=== PATIENT | male | born 1935 | race Two or more races ===

== ENCOUNTER → 2016-08-15 | Outpatient (CLI) | payer MEDICARE, OTHER ==
[~2016-08-15] MED LIST: CLOP75TA27 PO; ESCI10TA PO; INSU100V31 SQ; LISI10TA2 PO; METF500T4 PO; METO100T11 PO; SIMV20TA PO; UMEC62.5 IH
[2016-08-15 10:47] VITALS: BP 145/69
--- NOTE | 2016-08-15 13:04 | RAD ---
EXAM: Bilateral lower extremity arterial Doppler. HISTORY: Bilateral lower extremity nonhealing ulcers. COMPARISON: None. FINDINGS: Grayscale and Doppler analysis of the lower extremity arterial systems was performed bilaterally. There are elevated velocities within the right distal superficial femoral and popliteal arteries consistent with at least mild focal stenoses femoral waveforms appear clear, but there are likely triphasic through the trifurcation. There are biphasic at the ankle. On the left, there appear to be triphasic waveforms through the proximal superficial femoral artery. There are biphasic throughout the remainder of the lower extremity. No focally elevated velocities are seen. There are diffuse moderate atherosclerotic calcifications. IMPRESSION: 1. At least mild focal stenosis within the right distal superficial femoral artery and popliteal artery. 2. 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 3. Mild flow-limiting stenosis in the midportion of the left superficial femoral artery.
== END | disposition home or self-care (01) ==
LOC: US 13:40
PROVIDERS: ATTEND Preventive Medicine Undersea and Hyperbaric Medicine
DX: L97.929 Non-pressure chronic ulcer of unspecified part of left lower leg with unspecified severity (principal); L97.919 Non-pressure chronic ulcer of unspecified part of right lower leg with unspecified severity; I77.1 Stricture of artery
CPT/HCPCS: 93925

== ENCOUNTER → 2016-08-23 | Outpatient (CLI) | payer MEDICARE, OTHER ==
[2016-08-15 10:47] VITALS: BP 145/69
== END | disposition home or self-care (01) ==
LOC: PMGWOUND 08:54
PROVIDERS: ATTEND Preventive Medicine Undersea and Hyperbaric Medicine
DX: I87.313 Chronic venous hypertension (idiopathic) with ulcer of bilateral lower extremity (principal); I70.232 Atherosclerosis of native arteries of right leg with ulceration of calf; E11.622 Type 2 diabetes mellitus with other skin ulcer; L97.212 Non-pressure chronic ulcer of right calf with fat layer exposed; L97.222 Non-pressure chronic ulcer of left calf with fat layer exposed; Z86.73 Personal history of transient ischemic attack (TIA), and cerebral infarction without residual deficits; Z87.891 Personal history of nicotine dependence
CPT/HCPCS: 11042; 11045

== ENCOUNTER → 2016-08-30 | Outpatient (CLI) | payer MEDICARE, OTHER ==
[2016-08-15 10:47] VITALS: BP 145/69
== END | disposition home or self-care (01) ==
LOC: PMGWOUND 10:29
PROVIDERS: ATTEND Preventive Medicine Undersea and Hyperbaric Medicine
DX: I83.002 Varicose veins of unspecified lower extremity with ulcer of calf (principal); E11.622 Type 2 diabetes mellitus with other skin ulcer; L97.212 Non-pressure chronic ulcer of right calf with fat layer exposed; L97.222 Non-pressure chronic ulcer of left calf with fat layer exposed; I10 Essential (primary) hypertension; I25.10 Atherosclerotic heart disease of native coronary artery without angina pectoris; Z86.73 Personal history of transient ischemic attack (TIA), and cerebral infarction without residual deficits; Z87.891 Personal history of nicotine dependence
CPT/HCPCS: 11043; 97597; 97598

== ENCOUNTER → 2016-09-06 | Outpatient (CLI) | payer MEDICARE, OTHER ==
[2016-08-15 10:47] VITALS: BP 145/69
== END | disposition home or self-care (01) ==
LOC: PMGWOUND 09:46
PROVIDERS: ATTEND Preventive Medicine Undersea and Hyperbaric Medicine
DX: I83.008 Varicose veins of unspecified lower extremity with ulcer other part of lower leg (principal); E11.622 Type 2 diabetes mellitus with other skin ulcer; L97.212 Non-pressure chronic ulcer of right calf with fat layer exposed; L97.222 Non-pressure chronic ulcer of left calf with fat layer exposed; I10 Essential (primary) hypertension; I25.10 Atherosclerotic heart disease of native coronary artery without angina pectoris; Z87.891 Personal history of nicotine dependence; Z86.73 Personal history of transient ischemic attack (TIA), and cerebral infarction without residual deficits
CPT/HCPCS: 11043; 11046; 97597; 97598

== ENCOUNTER → 2016-09-13 | Outpatient (CLI) | payer MEDICARE, OTHER ==
[2016-08-15 10:47] VITALS: BP 145/69
--- NOTE | 2016-09-13 16:50 | RAD ---
APPROVED REPORT Patient Location : OUT-PATIENT Indications Venous Ulcers Findings The right great saphenous vein as previously ablated. The right lesser saphenous vein measures 5 mm a nd does not reflux. The left great saphenous vein measures 6 mm and does not reflux. The left lesser saphenous vein measures 3 mm and does not reflux. Critical Notification Critical Value: No <Conclusion> No evidence of reflux seen in the left greater saphenous vein or bilateral superficial small saphenou s veins. Previously ablated right great saphenous vein.
== END | disposition home or self-care (01) ==
LOC: US 12:40
PROVIDERS: ATTEND Internal Medicine Cardiovascular Disease
DX: I87.8 Other specified disorders of veins (principal)
CPT/HCPCS: 93970

== ENCOUNTER → 2016-09-18 | Outpatient (CLI) | payer MEDICARE, OTHER ==
[2016-08-15 10:47] VITALS: BP 145/69
== END | disposition home or self-care (01) ==
LOC: PMGWOUND 09:22
PROVIDERS: ATTEND Preventive Medicine Undersea and Hyperbaric Medicine
DX: I83.018 Varicose veins of right lower extremity with ulcer other part of lower leg (principal); E11.622 Type 2 diabetes mellitus with other skin ulcer; L97.212 Non-pressure chronic ulcer of right calf with fat layer exposed; L97.222 Non-pressure chronic ulcer of left calf with fat layer exposed; I10 Essential (primary) hypertension; Z86.73 Personal history of transient ischemic attack (TIA), and cerebral infarction without residual deficits; I25.10 Atherosclerotic heart disease of native coronary artery without angina pectoris; Z87.891 Personal history of nicotine dependence
CPT/HCPCS: 97597; 97598

== ENCOUNTER → 2016-09-25 | Outpatient (CLI) | payer MEDICARE, OTHER ==
[2016-08-15 10:47] VITALS: BP 145/69
--- NOTE | 2016-09-26 17:03 | RAD ---
APPROVED REPORT Patient Location : OUT-PATIENT Indications Venous Ulcers Perforators Thigh Perforators Calf Perforators Left: cm up from medial heel 9cm back from the anterior border of tibia 4 diameter 18mm. Findings Limited venous evaluation for perforators. 1 gi tech identified as noted above. The right great saphenous vein appears to been previously ablated with chronic scarring/thrombus. The right lesser saphenous vein is dilated but previously did not reveal any evidence of reflux. Critical Notification Critical Value: No <Conclusion> Perforators as noted above.
== END | disposition home or self-care (01) ==
LOC: US 11:17
PROVIDERS: ATTEND Internal Medicine Cardiovascular Disease
DX: I82.811 Embolism and thrombosis of superficial veins of right lower extremity (principal)
CPT/HCPCS: 93970

== ENCOUNTER → 2016-09-25 | Outpatient (CLI) | payer MEDICARE, OTHER ==
[2016-08-15 10:47] VITALS: BP 145/69
== END | disposition home or self-care (01) ==
LOC: PMGWOUND 09:28
PROVIDERS: ATTEND Preventive Medicine Undersea and Hyperbaric Medicine
DX: I83.002 Varicose veins of unspecified lower extremity with ulcer of calf (principal); I83.018 Varicose veins of right lower extremity with ulcer other part of lower leg; E11.622 Type 2 diabetes mellitus with other skin ulcer; L97.212 Non-pressure chronic ulcer of right calf with fat layer exposed; L97.222 Non-pressure chronic ulcer of left calf with fat layer exposed; I25.10 Atherosclerotic heart disease of native coronary artery without angina pectoris; I10 Essential (primary) hypertension; Z86.73 Personal history of transient ischemic attack (TIA), and cerebral infarction without residual deficits; Z87.891 Personal history of nicotine dependence
CPT/HCPCS: 11042; 11045; 97597

== ENCOUNTER → 2016-09-30 | Outpatient (CLI) | payer MEDICARE, OTHER ==
[2016-09-30] VITALS (11 sets, daily range): BP systolic 137–162; BP diastolic 73–83
[~2016-09-30] VITALS: Ht 170.2 cm; Wt 93.9 kg
[~2016-09-30] MED LIST changes: +ACETAMINOPHEN 325 MG TABLET. PO PRN; +CONTRAST GIVEN MC PRN; +FENTANYL PF 100 MCG/2 ML VIAL. IV ONE; +FENTANYL PF 250 MCG/5 ML VIAL. IV ONE; +FENTANYL PF 250 MCG/5 ML VIAL. ONE; +IODIXANOL 320 MG/ML 100 ML VIAL. IART ONE; +IODIXANOL 320 MG/ML 100 ML VIAL. ONE; +IV 1/2 NORMAL SALINE 1,000 ML IV SCH; +LIDOCAINE 2% 20 ML VIAL. IJ ONE; +LIDOCAINE 2% 20 ML VIAL. ONE; +MAGNESIUM HYDROXIDE 2,400 MG/30 ML ORAL.SUSP. PO PRN; +MIDAZOLAM HCL/PF 5 MG/5 ML VIAL. IV ONE; +MIDAZOLAM HCL/PF 5 MG/5 ML VIAL. ONE
[2016-09-30 07:08] LABS: HEMATOCRIT 34.8 % (39.0-53.0); HEMOGLOBIN 11.6 g/dL (13.0-17.5); RED BLOOD COUNT 3.81 x10^6/uL (4.30-5.70); RED CELL DISTRIBUTION WIDTH 14.9 % (11.5-14.5); WHITE BLOOD COUNT 5.6 x10^3/uL (4.0-11.0)
[2016-09-30 07:20] LABS: INR 1.2 (0.8-1.1); PROTHROMBIN TIME PATIENT 14.4 SEC (11.7-14.0)
[2016-09-30 07:22] LABS: CALCIUM 8.8 mg/dL (8.5-10.1); CREATININE 1.1 mg/dL (0.7-1.3); GFR 64.4; POTASSIUM 4.1 mmol/L (3.5-5.1)
--- NOTE | 2016-09-30 12:17 | PDOC ---
MODERATE SEDATION ASSESSMENT RISKS/ALTERNATIVES Risks/Alternatives Risks and alternatives of this type of sedation and procedure discussed with: RISK/ALTERNATIVES: Patient H & P ON CHART H & P H & P on chart and reviewed for co-morbid conditions and appropriate labs. H&P ON CHART: Yes STATUS PREG STATUS ASSESSED: N/A MEDS/ALLERGIES REVIEWED Meds/Allergies Reviewed Medications and Allergies including time and route of recently administered narcotics and sedatives. MEDS/ALLERGIES REVIEWED: Yes ASA RATING ASA RATING: II AIRWAY ASSESSMENT Airway Assessment Airway patency, oral function limitations, presence of caps, crowns, dentures, partials, and ability to extend neck assessed. AIRWAY ASSESSMENT: Yes MALLAMPATI SCORE MALLAMPATI SCORE: II PRE-SEDATION ASSESSMENT PRE-SEDATION ASSESSMENT: Yes LINDSAY SALGADO MD Sep 30, 2016 12:17
--- NOTE | 2016-09-30 12:27 | CARD ---
APPROVED REPORT Patient StatusOUT-PATIENT Music Assistant: Ron Bartlett RT (R) Procedure(s) performed: Aortogram with bilateral lower extremity runoff HISTORY : Nonhealing ulcers bilateral lower extremities. PROCEDURE NARRATIVE After explained the risks, benefits and alternative options, informed consent was obtained from patie nt. Patient was brought to the cardiac [facility] and his right groin was prepped and draped in the usu al fashion. 20 mL of 2% lidocaine was infiltrated into the skin and subcutaneous tissues for local an esthesia. Arterial access was obtained in the right common femoral artery and a 5 Bahamian sheath was i nserted. 5 Bahamian pigtail catheter was used to perform aortogram with bilateral lower extremity runof f. 5 [place]ian crossover catheter was used to Ross the aortic hai and the tip positioned in the proxi mal portion of the left superficial femoral artery, selective left lower extremity angiography was pe rformed. Contrast injections were performed through the sheath in the right groin for right lower ext remity angiography. Patient tolerated the procedure well. Hemostasis was achieved using Perclose sutu re closure device. There were no immediate complications. FINDINGS 1. No significant stenosis involving distal descending aorta, bilateral common and external iliac ar teries. 2. No significant stenosis involving bilateral common femoral arteries. The right superficial femoral artery showed 50% stenosis in the mid to distal segment. The left superficial femoral artery did not show any significant stenosis. 3. The popliteal arteries were not well visualized due to bilateral knee replacement surgeries. Crawford neo, based on good distal flow and previous noninvasive assessment, there is probably no significant stenosis. 4. There is three vessel runoff below the knee bilaterally. The right peroneal artery showed moderat e diffuse disease. No significant stenoses were noted. Conclusion No significant peripheral vascular disease Recommendations 1. Regular exercise regimen 2. Consider venous duplex scan for possible take away worker vein reflux as an etiology for nonhealing ulce rs.
== END | disposition home or self-care (01) ==
LOC: CCL 06:42
PROVIDERS: ATTEND Internal Medicine Cardiovascular Disease
DX: L97.829 Non-pressure chronic ulcer of other part of left lower leg with unspecified severity (principal); L97.819 Non-pressure chronic ulcer of other part of right lower leg with unspecified severity; E78.00 Pure hypercholesterolemia, unspecified; I10 Essential (primary) hypertension; J44.9 Chronic obstructive pulmonary disease, unspecified; E11.9 Type 2 diabetes mellitus without complications; M19.90 Unspecified osteoarthritis, unspecified site; Z79.01 Long term (current) use of anticoagulants
CPT/HCPCS: 36415; 75630; 80048; 85027; 85610; 85730; C1769; C1771; C1892; G0269; J2250; J3010; Q9962

== ENCOUNTER → 2016-10-02 | Outpatient (CLI) | payer MEDICARE, OTHER ==
[2016-09-30 11:20] VITALS: BP 137/79
[~2016-10-02] MED LIST changes: -ACETAMINOPHEN 325 MG TABLET. PO PRN; -CONTRAST GIVEN MC PRN; -FENTANYL PF 100 MCG/2 ML VIAL. IV ONE; -FENTANYL PF 250 MCG/5 ML VIAL. IV ONE; -FENTANYL PF 250 MCG/5 ML VIAL. ONE; -IODIXANOL 320 MG/ML 100 ML VIAL. IART ONE; -IODIXANOL 320 MG/ML 100 ML VIAL. ONE; -IV 1/2 NORMAL SALINE 1,000 ML IV SCH; -LIDOCAINE 2% 20 ML VIAL. IJ ONE; -LIDOCAINE 2% 20 ML VIAL. ONE; -MAGNESIUM HYDROXIDE 2,400 MG/30 ML ORAL.SUSP. PO PRN; -MIDAZOLAM HCL/PF 5 MG/5 ML VIAL. IV ONE; -MIDAZOLAM HCL/PF 5 MG/5 ML VIAL. ONE
== END | disposition home or self-care (01) ==
LOC: PMGWOUND 11:23
PROVIDERS: ATTEND Preventive Medicine Undersea and Hyperbaric Medicine
DX: I83.002 Varicose veins of unspecified lower extremity with ulcer of calf (principal); E11.622 Type 2 diabetes mellitus with other skin ulcer; L97.211 Non-pressure chronic ulcer of right calf limited to breakdown of skin; L97.221 Non-pressure chronic ulcer of left calf limited to breakdown of skin; I10 Essential (primary) hypertension; I25.10 Atherosclerotic heart disease of native coronary artery without angina pectoris; Z87.891 Personal history of nicotine dependence; Z86.73 Personal history of transient ischemic attack (TIA), and cerebral infarction without residual deficits
CPT/HCPCS: 97597; 97598

== ENCOUNTER → 2016-10-09 | Outpatient (CLI) | payer MEDICARE, OTHER ==
[2016-09-30 11:20] VITALS: BP 137/79
== END | disposition home or self-care (01) ==
LOC: PMGWOUND 09:47
PROVIDERS: ATTEND Preventive Medicine Undersea and Hyperbaric Medicine
DX: I83.008 Varicose veins of unspecified lower extremity with ulcer other part of lower leg (principal); E11.622 Type 2 diabetes mellitus with other skin ulcer; L97.212 Non-pressure chronic ulcer of right calf with fat layer exposed; L97.222 Non-pressure chronic ulcer of left calf with fat layer exposed; I10 Essential (primary) hypertension; I25.10 Atherosclerotic heart disease of native coronary artery without angina pectoris; Z87.891 Personal history of nicotine dependence
CPT/HCPCS: 29581; 97597; 97598

== ENCOUNTER → 2016-10-16 | Outpatient (CLI) | payer MEDICARE, OTHER ==
[2016-09-30 11:20] VITALS: BP 137/79
== END | disposition home or self-care (01) ==
LOC: PMGWOUND 10:47
PROVIDERS: ATTEND Preventive Medicine Undersea and Hyperbaric Medicine
DX: I83.002 Varicose veins of unspecified lower extremity with ulcer of calf (principal); L97.212 Non-pressure chronic ulcer of right calf with fat layer exposed; L97.222 Non-pressure chronic ulcer of left calf with fat layer exposed; E11.622 Type 2 diabetes mellitus with other skin ulcer; I10 Essential (primary) hypertension; I25.10 Atherosclerotic heart disease of native coronary artery without angina pectoris; J44.9 Chronic obstructive pulmonary disease, unspecified; M19.90 Unspecified osteoarthritis, unspecified site; E78.00 Pure hypercholesterolemia, unspecified; Z79.4 Long term (current) use of insulin; Z86.73 Personal history of transient ischemic attack (TIA), and cerebral infarction without residual deficits; Z87.891 Personal history of nicotine dependence; Z79.01 Long term (current) use of anticoagulants
CPT/HCPCS: 29581; 97597; 97598

== ENCOUNTER → 2016-10-23 | Outpatient (CLI) | payer MEDICARE, OTHER ==
[2016-09-30 11:20] VITALS: BP 137/79
== END | disposition home or self-care (01) ==
LOC: PMGWOUND 11:05
PROVIDERS: ATTEND Preventive Medicine Undersea and Hyperbaric Medicine
DX: I87.2 Venous insufficiency (chronic) (peripheral) (principal); E11.622 Type 2 diabetes mellitus with other skin ulcer; I83.019 Varicose veins of right lower extremity with ulcer of unspecified site; L97.211 Non-pressure chronic ulcer of right calf limited to breakdown of skin; L97.221 Non-pressure chronic ulcer of left calf limited to breakdown of skin; I10 Essential (primary) hypertension; I25.10 Atherosclerotic heart disease of native coronary artery without angina pectoris; Z86.73 Personal history of transient ischemic attack (TIA), and cerebral infarction without residual deficits; Z87.891 Personal history of nicotine dependence; Z95.0 Presence of cardiac pacemaker
CPT/HCPCS: 97597; 97598

== ENCOUNTER → 2016-10-31 | Outpatient (CLI) | payer MEDICARE, OTHER ==
[2016-09-30 11:20] VITALS: BP 137/79
== END | disposition home or self-care (01) ==
LOC: PMGWOUND 11:39
PROVIDERS: ATTEND Emergency Medicine Undersea and Hyperbaric Medicine
DX: I83.009 Varicose veins of unspecified lower extremity with ulcer of unspecified site (principal); E11.622 Type 2 diabetes mellitus with other skin ulcer; L97.212 Non-pressure chronic ulcer of right calf with fat layer exposed; L97.222 Non-pressure chronic ulcer of left calf with fat layer exposed; I10 Essential (primary) hypertension; E78.00 Pure hypercholesterolemia, unspecified; J44.9 Chronic obstructive pulmonary disease, unspecified; M19.90 Unspecified osteoarthritis, unspecified site; Z79.01 Long term (current) use of anticoagulants; Z79.4 Long term (current) use of insulin; Z95.0 Presence of cardiac pacemaker; Z87.891 Personal history of nicotine dependence; Z86.73 Personal history of transient ischemic attack (TIA), and cerebral infarction without residual deficits
CPT/HCPCS: 97597; 97598

== ENCOUNTER → 2016-11-05 | Outpatient (CLI) | payer MEDICARE, OTHER ==
[2016-09-30 11:20] VITALS: BP 137/79
== END | disposition home or self-care (01) ==
LOC: PMGWOUND 07:58
PROVIDERS: ATTEND Emergency Medicine Undersea and Hyperbaric Medicine
DX: I83.012 Varicose veins of right lower extremity with ulcer of calf (principal); I83.022 Varicose veins of left lower extremity with ulcer of calf; E11.622 Type 2 diabetes mellitus with other skin ulcer; L97.212 Non-pressure chronic ulcer of right calf with fat layer exposed; L97.222 Non-pressure chronic ulcer of left calf with fat layer exposed; J44.9 Chronic obstructive pulmonary disease, unspecified; I10 Essential (primary) hypertension; E78.00 Pure hypercholesterolemia, unspecified; M19.90 Unspecified osteoarthritis, unspecified site; I25.10 Atherosclerotic heart disease of native coronary artery without angina pectoris; Z79.01 Long term (current) use of anticoagulants; Z79.4 Long term (current) use of insulin; Z87.891 Personal history of nicotine dependence; Z95.0 Presence of cardiac pacemaker; Z86.73 Personal history of transient ischemic attack (TIA), and cerebral infarction without residual deficits
CPT/HCPCS: 97597; 97598

== ENCOUNTER → 2016-11-08 | Outpatient (CLI) | payer MEDICARE, OTHER ==
[2016-09-30 11:20] VITALS: BP 137/79
== END | disposition home or self-care (01) ==
LOC: PMGWOUND 08:09
PROVIDERS: ATTEND Preventive Medicine Undersea and Hyperbaric Medicine
DX: I83.012 Varicose veins of right lower extremity with ulcer of calf (principal); I83.022 Varicose veins of left lower extremity with ulcer of calf; E11.622 Type 2 diabetes mellitus with other skin ulcer; L97.212 Non-pressure chronic ulcer of right calf with fat layer exposed; L97.222 Non-pressure chronic ulcer of left calf with fat layer exposed; J44.9 Chronic obstructive pulmonary disease, unspecified; I10 Essential (primary) hypertension; E78.00 Pure hypercholesterolemia, unspecified; M19.90 Unspecified osteoarthritis, unspecified site; Z79.01 Long term (current) use of anticoagulants; Z87.891 Personal history of nicotine dependence; Z95.0 Presence of cardiac pacemaker; Z86.73 Personal history of transient ischemic attack (TIA), and cerebral infarction without residual deficits; Z79.4 Long term (current) use of insulin
CPT/HCPCS: 99214

== ENCOUNTER → 2016-11-11 | Outpatient (CLI) | payer MEDICARE, OTHER ==
[2016-09-30 11:20] VITALS: BP 137/79
== END | disposition home or self-care (01) ==
LOC: PMGWOUND 09:04
PROVIDERS: ATTEND Emergency Medicine Undersea and Hyperbaric Medicine
DX: I87.2 Venous insufficiency (chronic) (peripheral) (principal); E11.622 Type 2 diabetes mellitus with other skin ulcer; L97.212 Non-pressure chronic ulcer of right calf with fat layer exposed; L97.222 Non-pressure chronic ulcer of left calf with fat layer exposed; I10 Essential (primary) hypertension; I25.10 Atherosclerotic heart disease of native coronary artery without angina pectoris; Z86.73 Personal history of transient ischemic attack (TIA), and cerebral infarction without residual deficits; Z95.0 Presence of cardiac pacemaker; Z87.891 Personal history of nicotine dependence
CPT/HCPCS: 97597; 97598

== ENCOUNTER 2018-01-16 07:14 | Outpatient (CLI) | payer MEDICARE, OTHER ==
[2018-01-16 07:53] LABS: HEMATOCRIT 32.4 % (39.0-53.0); HEMOGLOBIN 10.7 g/dL (13.0-17.5); MEAN CORPUSCULAR HEMOGLOBIN 27 pg (25-35); MEAN CORPUSCULAR HGB CONC 33 g/dL (31-37); MEAN CORPUSCULAR VOLUME 83 fL (79-100); PLATELET COUNT 158 x10^3/uL (140-400); RED BLOOD COUNT 3.92 x10^6/uL (4.30-5.70); RED CELL DISTRIBUTION WIDTH 18.8 % (11.5-14.5); WHITE BLOOD COUNT 2.9 x10^3/uL (4.0-11.0)
[2018-01-16] MEDS ORDERED: LIDOCAINE 2%/EPI 1:100,000 20 ML VIAL. (07:57)
[2018-01-16 08:11] LABS: PARTIAL THROMBOPLASTIN TIME 26 SEC (24-38)
[2018-01-16 08:12] LABS: INR 1.2 (0.8-1.1); PROTHROMBIN TIME PATIENT 14.3 SEC (11.7-14.0)
[2018-01-16] MEDS ORDERED: BIVALIRUDIN 250 MG VIAL. IV (09:46)
== END 2018-01-16 10:30 | disposition home or self-care (01) ==
LOC: CCL 07:14
DX: Z45.09 Encounter for adjustment and management of other cardiac device (principal); Z86.73 Personal history of transient ischemic attack (TIA), and cerebral infarction without residual deficits; I25.10 Atherosclerotic heart disease of native coronary artery without angina pectoris; Z95.5 Presence of coronary angioplasty implant and graft; E78.00 Pure hypercholesterolemia, unspecified; I10 Essential (primary) hypertension; J44.9 Chronic obstructive pulmonary disease, unspecified; M19.90 Unspecified osteoarthritis, unspecified site; Z79.899 Other long term (current) drug therapy; Z79.84 Long term (current) use of oral hypoglycemic drugs; Z79.4 Long term (current) use of insulin; Z79.01 Long term (current) use of anticoagulants
CPT/HCPCS: 33284; 36415; 85027; 85610; 85730